=== PATIENT | female | born 1945 | race Caucasian/White ===

== ENCOUNTER 2023-08-14 01:08 | Day surgery (SDC) | payer MEDICARE, OTHER, SELFPAY ==
[2023-07-27 12:02] VITALS: BMI 23.4
--- NOTE | 2023-08-10 13:52 | SUR.PREOP ---
Patient called regarding upcoming procedure. Reviewed preop instructions, appointment times, and procedure prep.
--- NOTE | 2023-08-10 13:54 | SUR.PREOP ---
Patient called regarding upcoming procedure. Reviewed preop instructions, appointment times, and procedure prep.
--- NOTE | 2023-08-13 14:36 | PM.HPGS ---
History of Present Illness History of Present Illness Consent: Risks, benefits, and alternatives have been discussed and questions answered. Patient agrees to proceed with procedure. Chief complaint: Family History of Colon Cance Narrative: Laquita Moreno is a 77 year old female Referred for colon cancer screening. She has a family history of colon cancer in her mother. Review of Systems Review of Systems: All systems reviewed & are unremarkable except as noted in HPI and below PMFSH Past Medical History Medical History Allergic rhinitis Colon cancer screening GERD (gastroesophageal reflux disease) Varicose vein of leg Surgical History Surgical History Hip joint replacement status History of cholecystectomy Hx of tonsillectomy Family History Family History Mother Colorectal cancer Hypertension Cerebrovascular accident Thyroid disease Father Hypertension Heart disease Kidney disease Aneurysm Social History Social History Smoking status: Never smoker Second hand tobacco smoke exposure: No Alcohol intake: current Substance use: never Substance use type: does not use Living arrangements: with family Gender identity (if verbalized by the patient): Female Spiritual care concerns: No Meds Home Medications and Allergies Home Medications Medication Instructions Recorded Confirmed Type [id number] 5 mg-zeaxanth 1 cap PO DAILY 11/27/19 07/27/23 History 1 mg-bilberry 7.5 mg-herbal capsule (Macular Health Formula) ascorbic acid (vitamin C) 500 mg 500 mg PO DAILY 12/23/19 07/27/23 History tablet propylene glycol 0.6 % eye drops 1 drop ophthalmic (eye) BID PRN 12/23/19 07/27/23 History (Systane Complete) Dry Eyes fluticasone propionate 50 1 spray intranasal DAILY 11/28/21 07/27/23 History mcg/actuation nasal spray,suspension (Flonase Allergy Relief) loratadine 10 mg tablet (Claritin) 10 mg PO DAILY 11/28/21 07/27/23 History multivitamin 1 tablet PO DAILY 11/28/21 07/27/23 History olopatadine 0.2 % eye drops 1 drp EACH EYE DAILY 11/28/21 07/27/23 History (Pataday Once Daily Relief) astragalus root 470 mg capsule 400 mg PO DAILY 07/27/23 07/27/23 History calcium citrate malate-vit D3 1 cap PO DAILY 07/27/23 07/27/23 History flaxseed oil 1,200 mg PO DAILY 07/27/23 07/27/23 History Allergies Allergy/AdvReac Type Severity Reaction Status Date / Time amoxicillin [From Augmentin] AdvReac diarrhea- Verified 07/27/23 12:03 and Cdiff positive 2018 clavulanic acid AdvReac diarrhea- Verified 07/27/23 12:03 [From Augmentin] and Cdiff positive 2018 Exam Const: General: alert Orientation/consciousness: patient oriented x3 Resp: Auscultation: clear to auscultation bilaterally Cardio: Rhythm: regular rhythm GI: GI Palp: Yes Soft to palpation and No Tenderness to palpation present (GI) Neuro: General: patient oriented x3 Assessment and Plan Assessment and plan (1) Colon cancer screening: Code(s): Z12.11 - Encounter for screening for malignant neoplasm of colon Status: Acute Assessment and Plan: Colonoscopy with possible biopsy or polypectomy or cautery or injection of substances.
[2023-08-14 08:13] VITALS: BP 131/71; PULSE 81; RESP 18; TEMP 36.4; O2SAT 100; BMI 22.6
[2023-08-14] MEDS: LACTATED RINGERS 1,000 ML 150 ML IV CONT (08:30)
--- NOTE | 2023-08-14 09:04 | WPDANESEPPF ---
Anes - Initial Pre Proc Eval Procedure: Operation Date: 08/14/23 09:30 Proposed Procedures p Colonoscopy - Bhupinder Wheeler MD Date/Time: 08/14/23 09:04 Surgeon: Bhupinder Wheeler MD Pre Op Diagnosis: Family History of Colon Cance Patient Data Age: 77 Gender: F Height: 1.68 m Weight: 63.5 kg Last Vital Signs Temp 97.5 F L 08/14/23 08:13 Pulse 81 08/14/23 08:13 Resp 18 08/14/23 08:13 BP 131/71 08/14/23 08:13 Pulse Ox 100 08/14/23 08:13 O2 Del Method Room Air 08/14/23 08:13 Allergies Allergy/AdvReac Type Severity Reaction Status Date / Time amoxicillin [From Augmentin] AdvReac diarrhea- Verified 07/27/23 12:03 and Cdiff positive 2017 clavulanic acid AdvReac diarrhea- Verified 07/27/23 12:03 [From Augmentin] and Cdiff positive 2017 Home Medications Medication Instructions Recorded Confirmed Type [id number] 5 mg-zeaxanth 1 cap PO DAILY 11/27/19 07/27/23 History 1 mg-bilberry 7.5 mg-herbal capsule (Macular Health Formula) ascorbic acid (vitamin C) 500 mg 500 mg PO DAILY 12/23/19 07/27/23 History tablet propylene glycol 0.6 % eye drops 1 drop ophthalmic (eye) BID PRN 12/23/19 07/27/23 History (Systane Complete) Dry Eyes fluticasone propionate 50 1 spray intranasal DAILY 11/28/21 07/27/23 History mcg/actuation nasal spray,suspension (Flonase Allergy Relief) loratadine 10 mg tablet (Claritin) 10 mg PO DAILY 11/28/21 07/27/23 History multivitamin 1 tablet PO DAILY 11/28/21 07/27/23 History olopatadine 0.2 % eye drops 1 drp EACH EYE DAILY 11/28/21 07/27/23 History (Pataday Once Daily Relief) astragalus root 470 mg capsule 400 mg PO DAILY 07/27/23 07/27/23 History calcium citrate malate-vit D3 1 cap PO DAILY 07/27/23 07/27/23 History flaxseed oil 1,200 mg PO DAILY 07/27/23 07/27/23 History Patient hx anesthesia problems: none Family hx anesthesia problems: none Results Review: All pre-operative results and documents have been reviewed as part of the pre-operative evaluation. [facility] Past Medical History Medical History Allergic rhinitis Colon cancer screening GERD (gastroesophageal reflux disease) Varicose vein of leg Surgical History Surgical History Hip joint replacement status History of cholecystectomy Hx of tonsillectomy Family History Family History Mother Colorectal cancer Hypertension Cerebrovascular accident Thyroid disease Father Hypertension Heart disease Kidney disease Aneurysm Social History Social History Smoking status: Never smoker Second hand tobacco smoke exposure: No Alcohol intake: current Substance use: never Substance use type: does not use Living arrangements: with family Gender identity (if verbalized by the patient): Female Spiritual care concerns: No Anes - Eval Final PreProcedure Day of Procedure 08/14/23 09:04 Patient weight: normal Heart: regular rate and rhythm Lungs: clear to auscultation Airway: Mallampati scale class II Neurological: alert and oriented Last oral intake: >/= 8 hours ASA classification: II Emergent: no Anesthetic plan: proceed Anesthesia type and monitoring: general GIVS and standard monitoring Results Review: All pre-operative results and documents have been reviewed as part of the pre-operative evaluation. Informed Consent: The patient's anesthetic plan and its attendant risks and benefits were discussed with the patient/family/POA. Questions were solicited and answers provided to the satisfaction of the patient/family/POA.
[2023-08-14 09:28] VITALS: BP 112/64; PULSE 63; RESP 18; O2SAT 100
[2023-08-14 09:38] VITALS: BP 121/67; PULSE 65; RESP 20; O2SAT 100
[2023-08-14 09:48] VITALS: BP 116/68; PULSE 68; RESP 24; O2SAT 100
== END 2023-08-14 09:55 | disposition home or self-care (01) ==
PROVIDERS: PCP Physician Assistant; Visit Provider Internal Medicine Gastroenterology
PROC: 0DJD8ZZ Inspection of Lower Intestinal Tract, Via Natural or Artificial Opening Endoscopic (ICD-10-PCS; CPT 45378; principal; 2023-08-14 09:30)
DX: Z12.11 Encounter for screening for malignant neoplasm of colon (principal); K57.30 Diverticulosis of large intestine without perforation or abscess without bleeding; Z80.0 Family history of malignant neoplasm of digestive organs
CPT/HCPCS: G0105; J2704; J7120